=== PATIENT | male | born 1990 | race Caucasian/White ===

== ENCOUNTER 2021-07-20 20:17 | Observation (INO) | payer MEDICAID ==
[~2021-07-20] VITALS: Ht 193 cm; Wt 108.9 kg
[2021-07-20 21:11] LABS: HEMOGLOBIN 16.6 gm/dl (14.0-17.5); RED BLOOD COUNT 5.18 M/UL (4.20-5.50); WHITE BLOOD COUNT 5.8 K/UL (4.5-11.0)
[2021-07-20 21:24] LABS: BUN/CREATININE RATIO 14 (0-10)
[2021-07-21] MEDS ORDERED: ZOFRAN ODT 4 MG4 MG SL (18:55)
[2021-07-24 22:11] LABS: CHLAMYDIA TRACHOMATIS, NAA Negative (Negative); NEISSERIA GONORRHOEAE, NAA Negative (Negative)
== END 2021-07-21 19:30 | disposition home or self-care (01) ==
LOC: ER1 20:17 → CDU 07-21 00:17 → MED SURG 4 07-21 00:17
PROVIDERS: Physician Assistant; ADMIT Internal Medicine
DX: H57.02 Anisocoria (principal); F17.210 Nicotine dependence, cigarettes, uncomplicated; F10.10 Alcohol abuse, uncomplicated; R51.9 Headache, unspecified; G89.29 Other chronic pain; R94.31 Abnormal electrocardiogram [ECG] [EKG]; Z20.822 Contact with and (suspected) exposure to COVID-19
CPT/HCPCS: 70450; 70496; 70553; 80053; 80307; 81001; 82607; 82746; 83735; 85025; 87086; 93005; 96372; 96374; 99285; A9577; G0378; J1650; J2405; Q9967; U0002